=== PATIENT | female | born 1950 | race Caucasian/White ===

== ENCOUNTER 2018-11-01 16:01 | Outpatient (CLI) | payer MEDICARE ==
--- NOTE | 2018-11-09 09:13 | Mammography Report ---
Reason: SCREENING MAMMO Procedure Date: 11/01/2018 Accession Number: [id number] / [id number] Procedure: [facility] - Screening Mammo w/Davis CPT Code: FULL RESULT: EXAM: Screening Mammo w/Davis DATE: 11/01/2018 4:29 PM CLINICAL HISTORY: Screening encounter. TECHNIQUE: (B) - Bilateral CC and MLO views were obtained. COMPARISON: 08/19/2017 through 02/18/2015. PARENCHYMAL PATTERN: (A) - The breast(s) demonstrate(s) scattered fibroglandular densities. FINDINGS: There are coarse typically benign calcifications. There are no suspicious masses, calcifications, or areas of distortion. IMPRESSION: Benign findings. BI-RADS category 2. RECOMMENDATION: (ANNUAL) - Recommend routine annual screening mammography. BI-RADS CATEGORY: (2) - Benign Findings. STANDARD QUALIFYING STATEMENTS: 1. This examination was not reviewed with the aid of Computer-Aided Detection (CAD). 2. A negative or benign imaging report should not preclude biopsy if clinically suspicious findings are present. 3. Dense breasts may obscure an underlying neoplasm. 4. This examination was reviewed with the aid of 3D breast imaging (tomosynthesis).
== END 2018-11-01 16:02 | disposition home or self-care (01) ==
LOC: DI 16:01
PROVIDERS: ATTEND Internal Medicine
DX: Z12.31 Encounter for screening mammogram for malignant neoplasm of breast (principal)
CPT/HCPCS: 77063; 77067

== ENCOUNTER 2020-02-27 14:57 | Outpatient (CLI) | payer MEDICARE ==
--- NOTE | 2020-02-28 12:38 | Mammography Report ---
BILATERAL DIGITAL SCREENING MAMMOGRAM 3D/2D: 02/27/2020 CLINICAL: Routine screening. Comparison is made to exam dated: 11/01/2018 mammogram - [facility]. There are sca ttered fibroglandular elements in both breasts. No significant masses, calcifications, or other findings are seen in either breast. There has been no significant interval change. IMPRESSION: NEGATIVE There is no mammographic evidence of malignancy. A 1 year screening mammogram is recommended. This exam was interpreted at Station ID: [id number]. NOTE: For mammograms, a report in lay terms will be sent to the patient. Approximately 15% of breast malignancies will not be visualized mammographically. In the management of a palpable breast mass, a negative mammogram must not discourage biopsy of a clinically suspicious lesion. Electronically Signed By: Abdon patel/[email or web address]:02/27/2020 15:44:38 ACR BI-RADS Category 1: Negative 3341F PARENCHYMAL PATTERN: (A) - The breast(s) demonstrate(s) scattered fibroglandular densities. BI-RADS CATEGORY: (1) - 1 RECOMMENDATION: (ANNUAL) - Recommend routine annual screening mammography. [id number] 1 year screening LATERALITY: (B)
== END 2020-02-27 14:58 | disposition home or self-care (01) ==
LOC: DI 14:57
DX: Z12.31 Encounter for screening mammogram for malignant neoplasm of breast (principal)
CPT/HCPCS: 77063; 77067

== ENCOUNTER 2021-12-18 08:36 | Outpatient (CLI) | payer MEDICARE ==
--- NOTE | 2021-12-19 08:51 | Mammography Report ---
BILATERAL DIGITAL SCREENING MAMMOGRAM 3D/2D: 12/18/2021 CLINICAL: Routine screening. Comparison is made to exams dated: 02/27/2020 mammogram and 11/01/2018 mammogram - [facility]. There are scattered fibroglandular elements in both breasts. No significant masses, calcifications, or other findings are seen in either breast. There has been no significant interval change. IMPRESSION: NEGATIVE There is no mammographic evidence of malignancy. A 1 year screening mammogram is recommended. This exam was interpreted at Station ID: [id number]. NOTE: For mammograms, a report in lay terms will be sent to the patient. Approximately 15% of breast malignancies will not be visualized mammographically. In the management of a palpable breast mass, a negative mammogram must not discourage biopsy of a clinically suspicious lesion. Electronically Signed By: Abdon Sim M.D. ar/penrad:12/18/2021 11:54:01 ACR BI-RADS Category 1: Negative 3341F PARENCHYMAL PATTERN: (A) - The breast(s) demonstrate(s) scattered fibroglandular densities. BI-RADS CATEGORY: (1) - 1 RECOMMENDATION: (ANNUAL) - Recommend routine annual screening mammography. [id number] 1 year screening LATERALITY: (B)
== END 2021-12-18 08:37 | disposition home or self-care (01) ==
LOC: DI 08:36
DX: Z12.31 Encounter for screening mammogram for malignant neoplasm of breast (principal)

== ENCOUNTER 2021-12-18 09:20 | Outpatient (CLI) | payer MEDICARE ==
[2021-12-18 09:50] LABS: ALBUMIN 4.4 g/dL (3.2-5.5); ALBUMIN/GLOBULIN RATIO 1.3 (1.0-2.2); ALKALINE PHOSPHATASE 54 IU/L (42-121); ALT ALANINE AMINOTRANSFERASE 13 IU/L (10-60); AST ASPARTATE AMINOTRANSFERASE 15 IU/L (10-42); BILIRUBIN,TOTAL 0.6 mg/dL (0.2-1.0); BUN - BLOOD UREA NITROGEN 20 mg/dL (6-20); CALCIUM 9.3 mg/dL (8.5-10.3); CARBON DIOXIDE - CO2 27 mmol/L (21-32); CHLORIDE 104 mmol/L (101-111); CHOL/HDL RATIO 3.5 (<4.4); CHOLESTEROL 252 mg/dL; CREATININE 0.8 mg/dL (0.4-1.0); GFR - MDRD 71 (>89); GLUCOSE 107 mg/dL (70-100); HDL CHOLESTEROL 71 mg/dL; LDL CHOLESTEROL,CALCULATED 163 mg/dL; LDL/HDL RATIO 2.3 (<4.4); POTASSIUM 4.1 mmol/L (3.5-5.0); SODIUM 139 mmol/L (135-145); TOTAL PROTEIN 7.7 g/dL (6.7-8.2); TRIGLYCERIDES 92 mg/dL; VLDL CHOLESTEROL 18 mg/dL
[2021-12-19 06:09] LABS: HCV AB 0.1 s/co ratio (0.0-0.9)
== END 2021-12-18 09:21 | disposition home or self-care (01) ==
LOC: LAB 09:20
PROVIDERS: ATTEND Internal Medicine
DX: E78.5 Hyperlipidemia, unspecified (principal); Z11.59 Encounter for screening for other viral diseases
CPT/HCPCS: 36415; 80053; 80061; 83721; 86803

== ENCOUNTER 2021-12-30 07:45 | Outpatient (CLI) | payer MEDICARE ==
--- NOTE | 2021-12-30 08:53 | Ultrasound Report ---
PROCEDURE: Abdomen Complete INDICATIONS: HARD MASS OF ABDOMEN TECHNIQUE: Real-time scanning was performed of the abdominal and retroperitoneal organs, with image documentatio n. COMPARISON: None. FINDINGS: Liver: The liver measures 14.8 cm in size and demonstrates increased echogenicity throughout. The hy perechoic mass is present within the superior right lobe which measures 2.7 x 2.5 x 2.2 cm and has th e sonographic appearance of a hepatic hemangioma. Gallbladder: The gallbladder wall measures 1.1 mm in diameter. No stones, sludge, pericholecystic flu id, or sonographic Fontana's sign. Biliary ducts: Intrahepatic bile ducts are non-dilated. Extrahepatic bile duct caliber measures 5.1 mm. Normal is 6-7 mm or less in diameter, or 10 mm or less post-cholecystectomy. Pancreas: Normal size. There is a 1.4 x 1.3 x 1.6 cm cystic lesion at the head of the pancreas. No in ternal vascularity detected; however a small mural nodule is noted. Spleen: Spleen is normal in size and homogeneous in echotexture. Kidneys: Kidneys are normal in size and echotexture. Right kidney measures 10.8 cm long; left kidne y measures 11.0 cm long. No hydronephrosis or nephrolithiasis. No solid masses. Aorta: Visualized aorta is normal in caliber at less than 3 cm. Iliacs: Proximal common iliac arteries are normal in caliber at less than 2.5 cm. IVC: Intrahepatic inferior vena cava is patent. Miscellaneous: No free abdominal fluid. A 4 cm fat-containing umbilical hernia is present in the are a palpated by the patient. It is unclear whether this is reducible. IMPRESSION: 1. Fat-containing umbilical hernia which corresponds with the region palpable by the patient. It is u nclear from this study whether this is reducible or nonreducible. 2. Incidentally noted hepatic hemangioma. 3. Increased echogenicity of the hepatic parenchyma suggesting fatty infiltration although other sour brisa of hepatocellular dysfunction cannot be excluded. 4. Cyst within the pancreatic head with questionable mural nodule. No definite vascularity; however p ancreatic mass protocol CT recommended to further characterize this finding and establish baseline st udy for further follow-up. Differential considerations include a cystic pancreatic neoplasm. Reviewed by: Vero Rogers MD on 12/30/2021 8:51 AM PDT Approved by: Vero Rogers MD on 12/30/2021 8:51 AM PDT Station ID: [id number]
== END 2021-12-30 07:46 | disposition home or self-care (01) ==
LOC: DI 07:45
PROVIDERS: ATTEND Internal Medicine
DX: K42.9 Umbilical hernia without obstruction or gangrene (principal); K86.2 Cyst of pancreas

== ENCOUNTER 2022-03-13 06:25 | Day surgery (SDC) | payer MEDICARE ==
[2022-03-13] MEDS ORDERED: CEFAZOLIN 2G/50ML 0.9% NS 2 GM/50 ML BAG IV ONE (06:42)
[2022-03-13] MEDS ORDERED: LACTATED RINGERS 1,000 ML IV ONE (06:45)
--- NOTE | 2022-03-13 07:20 | ANESTHESIA ---
Pre-Anesthesia VS, & Labs - Diagnosis UMBILICAL HERNIA - Procedure UMBILICAL HERNIA REPAIR Vital Signs: Temp Pulse Resp BP Pulse Ox 36.7 C 70 20 206/106 H 94 03/13/22 06:46 03/13/22 06:46 03/13/22 06:46 03/13/22 06:46 03/13/22 06:46 Height: 5 ft 10 in Weight (kg): 99.5 kg Body Mass Index: 31.4 BMI Classification: Obese - NPO >8 hours - Is Patient ?: No Home Medications and Allergies Home Medications: Ambulatory Orders FLUoxetine [PROzac] 10 mg PO DAILY 03/06/22 Gabapentin [Neurontin] 100 mg PO QPM 03/06/22 FLUoxetine [PROzac] 10 mg PO DAILY 03/06/22 Gabapentin [Neurontin] 100 mg PO QPM 03/06/22 Allergies/Adverse Reactions: Allergies Allergy/AdvReac Type Severity Reaction Status Date / Time codeine AdvReac Rash Verified 03/13/22 06:09 Anes History & Medical History - Anesthetic History Anesthesia Complications: reports: No previous complications Family history of Anesthesia Complications: Denies Family history of Malignant Hyperthermia: Denies - Medical History Cardiovascular: reports: None Pulmonary: reports: None Gastrointestinal: reports: Colon polyps Urinary: reports: None Musculoskeletal: reports: None Endocrine/Autoimmune: reports: None Skin: reports: None Smoking Status: Never smoker Psychosocial: reports: No issues indicated History of Cancer?: No - Surgical History General: reports: Colonoscopy, Other Orthopedic: reports: Spine surgery (CERVICAL FUSION; FULL NECK ROM) Exam General: Alert, Oriented x3, Cooperative, No acute distress Dental: WNL Mouth Openin Fingerbreadth Neck Mobility: Normal Mallampati classification: II Thyromental Distance: 4-6 cm Respiratory: Lungs clear Cardiovascular: Regular rate Mental/Cognitive Status: Alert/Oriented X3 Cognitive Status: Within normal limits Plan Anesthesia Type: General Consent for Procedure(s) Verified and Reviewed: Yes Code Status: Attempt Resuscitation ASA classification: 2-Mild systemic disease Is this case an emergency?: No
[2022-03-13] MEDS ORDERED: BUPIVACAINE 0.5% PF 30 ML VIAL ONE (07:22)
[2022-03-13] MEDS ORDERED: DEXAMETHASONE 4 MG/ML VIAL ONE (07:49)
[2022-03-13] MEDS ORDERED: LIDOCAINE-MPF 2% 5 ML VIAL ONE ×2 (07:49→07:50)
[2022-03-13] MEDS ORDERED: PROPOFOL 200 MG/20 ML VIAL IVP ONE ×2 (07:49→08:15)
[2022-03-13] MEDS ORDERED: ONDANSETRON 4 MG/2 ML VIAL ONE (07:49)
[2022-03-13] MEDS ORDERED: fentaNYL 100 MCG/2 ML VIAL ONE (07:56)
[2022-03-13] MEDS ORDERED: BUPIVACAINE 0.5% PF 30 ML VIAL SUBQ ONE (08:03)
[2022-03-13] MEDS ORDERED: GLYCOPYRROLATE 1 MG/5 ML VIAL ONE (08:21)
[2022-03-13] MEDS ORDERED: KETOROLAC 30 MG/ML VIAL ONE (08:53)
[2022-03-13] MEDS ORDERED: LACTATED RINGERS 350 ML IV ONE (08:54)
[2022-03-13] MEDS ORDERED: ONDANSETRON 4 MG/2 ML VIAL IVP PRN ×2 (08:54→09:01)
[2022-03-13] MEDS ORDERED: HYDROmorphone 0.5 MG/0.5 ML SYRINGE IVP PRN ×2 (08:54→09:01)
[2022-03-13] MEDS ORDERED: HYDROcod/ACETAM 5/325 MG TABLET PO PRN (08:54)
--- NOTE | 2022-03-13 09:00 | OPERATIVE REPORT ---
Operative Report - General Procedure Date: 03/13/22 Planned Procedure: Umbilical herniorrhaphy Pre-Op Diagnosis: Umbilical hernia Procedure Performed: Supraumbilical ventral herniorrhaphy with mesh Post Op Diagnosis: Supraumbilical ventral hernia - Procedure Note Primary Surgeon: Sly Valadez MD Anesthesia Provider: RISHI Rivera supervised by Karlee Abdul CRNA Anesthesia Technique: General mask, Local (30 mL of half percent Marcaine) IV Fluids (mL): 700 Estimated Blood Loss (mL): 5 Drain/Tube Type: Other (None.) Indications: Symptomatic umbilical hernia Findings: The hernia was not umbilical but rather a supraumbilical ventral hernia with incarcerated preperitoneal fat Complications: None. - Other Other Information/Narrative: After verbal and written informed consent was obtained detailing the operation, the alternatives the operation including no operation, risks of infection, bleeding requiring transfusion with its risks, nerve injury, and and after I met with the patient confirming the surgery and the site of surgery, the patient was brought to the operative suite and placed supine on the operating table. Great care was taken to avoid pressure points to prevent pressure necrosis or nerve injury. Monitoring devices were applied along with TEDs and pneumatic compression stockings (to prevent DVT). The patient received preoperative antibiotics for surgical prophylaxis. RISHI Rivera actively proctored by Karlee Abdul CRNA sedated and anesthetized the patient for the entire procedure. The patient was prepped and draped in the usual sterile manner. A "time in" then confirmed that the patient was identified with 3 identifiers (name, date, and medical record number), the history and physical was updated and in the chart, the signed consent confirming the procedure was in the chart, the patient was in the correct position, the aforementioned prophylactic measures were in place or given, we had the correct personnel and equipment to complete the procedure and that anesthesia and the surgical team were given an opportunity to express any concerns. With the agreement of everyone in the room we proceeded with the operation. A transverse incision was made over the hernia and dissection was carried out down to the hernia sac using a combination of blunt dissection as well as Bovie electrocautery. Hemostasis was obtained using Bovie electrocautery. The sac was dissected back to the fascial defect. Upon dissection down to the fascial defect it was clear that this hernia was not an umbilical hernia but rather a ventral hernia some 3 cm above the location of the umbilicus. A Ventralex ST Hernia Patch (reference #[id number], lot# [id number], use by 2023-08-01) was obtained and deployed into the hernia defect. The mesh was secured to the fascia using 2-0 PDS and the straps superiorly and inferiorly. Laterally a 0 PDS U stitch was placed to further secure the mesh to the fascia. The fascia was secured over the mesh with an additional [id number] 2-0 PDS.. The local was injected at the fascial and skin level. The subcutaneous tissues were approximated using a simple 3-0 Vicryl suture. The skin incision was approximated with 4-0 Monocryl in a subcuticular fashion. The skin was cleaned of its prep and Dermabond was applied. At this point a t imeout was performed that confirmed that all counts were correct x2, the procedure that was performed, the blood loss, the IV fluids administered, the patient's condition, and any concerns of the operating team had. Having tolerated the procedure well, the patient was taken recovery room in good and stable condition. The plan is for outpatient discharge when the patient is adequately recovered. This document was created in part using voice recognition technology. Because of the inherent limitations of the system, occasional same sounding word substitutions and grammatical errors do occur and persist despite proofreading. Please read this document for content.
[2022-03-13] MEDS ORDERED: ATROPINE ABBOJECT 1 MG/10 ML SYRINGE IVP PRN (09:01)
[2022-03-13] MEDS ORDERED: NALOXONE 0.4 MG/ML VIAL IVP PRN (09:01)
[2022-03-13] MEDS ORDERED: fentaNYL 100 MCG/2 ML VIAL IVP PRN (09:01)
[2022-03-13] MEDS ORDERED: MORPHINE 2 MG/ML CARPUJECT IVP PRN (09:01)
[2022-03-13] MEDS ORDERED: ePHEDrine 50 MG/ML VIAL IVP PRN (09:01)
[2022-03-13] MEDS ORDERED: LACTATED RINGERS 1,000 ML IV SCH (10:00)
--- NOTE | 2022-03-13 10:36 | ANESTHESIA POST OP EVALUATION ---
Anesthesia Post Eval - Post Anesthesia Eval Vitals: Last Vital Signs Temp 36.6 C 03/13/22 10:10 Pulse 62 03/13/22 10:10 Resp 14 03/13/22 10:10 BP 179/93 H 03/13/22 10:10 Pulse Ox 94 03/13/22 10:10 CV Function Including HR & BP: Stable Pain Control: Satisfactory Nausea & Vomiting: Negative Mental Status: Baseline Respiratory Status: Airway Patent Hydration Status: Satisfactory Anesthesia Complications: None
[2022-03-13 11:09] VITALS: BP 175/94
== END 2022-03-13 06:26 | disposition home or self-care (01) ==
LOC: SDS 06:25
PROVIDERS: ATTEND Surgery
DX: K43.6 Other and unspecified ventral hernia with obstruction, without gangrene (principal); H91.90 Unspecified hearing loss, unspecified ear; E66.9 Obesity, unspecified; Z68.31 Body mass index [BMI] 31.0-31.9, adult
CPT/HCPCS: 49561; 49568; A9270; C1781; J0690; J7120

== ENCOUNTER 2023-03-04 11:15 | Outpatient (CLI) | payer MEDICARE ==
--- NOTE | 2023-03-05 16:29 | Mammography Report ---
BILATERAL DIGITAL SCREENING MAMMOGRAM 3D/2D: 03/04/2023 CLINICAL: Routine screening. Comparison is made to exams dated: 12/18/2021 mammogram, 02/27/2020 mammogram, and 11/01/2018 mammogram - [facility]. There are scattered areas of fibroglandular density in both breasts (category b / 25%-50% glandular t issue). No significant masses, calcifications, or other findings are seen in either breast. There has been no significant interval change. IMPRESSION: NEGATIVE There is no mammographic evidence of malignancy. A 1 year screening mammogram is recommended. Based on the Tyrer Cuzick model (a risk assessment model) the patients lifetime risk is 5.3% and her 10 year risk is 3.4%. According to the ACR, ACS, and NCCN guidelines, an annual breast MRI exam denise g with mammogram is recommended if the patients lifetime risk is 20% or greater. This exam was interpreted at Station ID: [id number]. NOTE: For mammograms, a report in lay terms will be sent to the patient. Approximately 15% of breast malignancies will not be visualized mammographically. In the management of a palpable breast mass, a negative mammogram must not discourage biopsy of a clinically suspicious lesion. Electronically Signed By: Vero van/anirudh:03/04/2023 17:42:03 letter sent: No_Letter ACR BI-RADS Category 1: Negative 3341F PARENCHYMAL PATTERN: (A) - The breast(s) demonstrate(s) scattered fibroglandular densities. BI-RADS CATEGORY: (1) - 1 Mammogram [id number] 1 year screening LATERALITY: (B)
== END 2023-03-04 11:16 | disposition home or self-care (01) ==
LOC: DI 11:15
DX: Z12.31 Encounter for screening mammogram for malignant neoplasm of breast (principal)

== ENCOUNTER 2023-06-02 07:52 | Day surgery (SDC) | payer MEDICARE ==
[2023-06-02] MEDS ORDERED: LACTATED RINGERS 1,000 ML IV ONE (08:14)
--- NOTE | 2023-06-02 08:50 | ANESTHESIA ---
Pre-Anesthesia VS, & Labs - Diagnosis screening exam - Procedure colonoscopy Vital Signs: Temp Pulse Resp BP Pulse Ox O2 Flow Rate 36.8 C 63 21 167/104 H 96 06/02/23 08:07 06/02/23 08:07 06/02/23 08:07 06/02/23 08:07 06/02/23 08:07 Height: 5 ft 10 in Weight (kg): 99 kg Body Mass Index: 31.3 BMI Classification: Obese - NPO >8 hours - Is Patient ?: No Home Medications and Allergies FLUoxetine [PROzac] 10 mg PO DAILY 03/06/22 Gabapentin [Neurontin] 100 mg PO QPM 03/06/22 Allergies/Adverse Reactions: Allergies Allergy/AdvReac Type Severity Reaction Status Date / Time codeine AdvReac Rash Verified 06/01/23 13:31 Anes History & Medical History - Anesthetic History Anesthesia Complications: reports: No previous complications - Medical History Cardiovascular: reports: None Pulmonary: reports: None Gastrointestinal: reports: Colon polyps Urinary: reports: None Neuro: reports: None Musculoskeletal: reports: None Endocrine/Autoimmune: reports: None Skin: reports: None Smoking Status: Never smoker Psychosocial: reports: Alcohol History of Cancer?: No Other Past Medical History: Hard of hearing - Surgical History General: reports: Other Orthopedic: reports: Spine surgery Exam General: Alert, Oriented x3, Cooperative, No acute distress Dental: WNL Mouth Openin Fingerbreadth Neck Mobility: Normal Mallampati classification: II Thyromental Distance: 4-6 cm Mental/Cognitive Status: Alert/Oriented X3, Normal for patient Plan Anesthesia Type: General, Total IV Consent for Procedure(s) Verified and Reviewed: Yes Code Status: Attempt Resuscitation ASA classification: 2-Mild systemic disease Is this case an emergency?: No
[2023-06-02] MEDS ORDERED: LACTATED RINGERS 400 ML IV ONE ×2 (09:28)
[2023-06-02 09:45] VITALS: BP 138/79; O2SAT 100
--- NOTE | 2023-06-02 10:29 | ANESTHESIA POST OP EVALUATION ---
Anesthesia Post Eval - Post Anesthesia Eval Vitals: Last Vital Signs Temp 36.1 C L 06/02/23 09:40 Pulse 52 L 06/02/23 09:40 Resp 14 06/02/23 09:40 BP 138/79 H 06/02/23 09:40 Pulse Ox 100 06/02/23 09:40 O2 Flow Rate CV Function Including HR & BP: Stable Pain Control: Satisfactory Nausea & Vomiting: Negative Mental Status: Baseline Respiratory Status: Airway Patent Hydration Status: Satisfactory Anesthesia Complications: None
== END 2023-06-02 07:53 | disposition home or self-care (01) ==
LOC: SDS 07:52
PROVIDERS: ATTEND Surgery
PROC: 0DBN8ZZ Excision of Sigmoid Colon, Via Natural or Artificial Opening Endoscopic (ICD-10-PCS; principal; 2023-06-02 09:00)
DX: Z12.11 Encounter for screening for malignant neoplasm of colon (principal); K63.5 Polyp of colon; K57.30 Diverticulosis of large intestine without perforation or abscess without bleeding; K64.1 Second degree hemorrhoids; Z87.891 Personal history of nicotine dependence; E66.9 Obesity, unspecified; Z68.31 Body mass index [BMI] 31.0-31.9, adult
CPT/HCPCS: 45380; J7120

== ENCOUNTER 2024-01-31 08:00 | Outpatient (CLI) | payer MEDICARE ==
--- NOTE | 2024-01-31 19:30 | XRAY Report ---
PROCEDURE: Chest 2V INDICATIONS: HYPOXIA TECHNIQUE: 2 views of the chest were acquired. COMPARISON: 07/25/2015 FINDINGS: Surgical changes and devices: None. Lungs and pleura: Increased infrahilar interstitial markings bilaterally and minimal airspace diseas e at the left lung base. Mediastinum: Mediastinal contours appear normal. Heart size is normal. Bones and chest wall: No suspicious bony lesions. Overlying soft tissues appear unremarkable. IMPRESSION: Minor left basilar airspace disease, pneumonia versus bronchitis. Findings superimposed on mild interstitial prominence of uncertain chronicity. Reviewed by: Phyllis De La O MD on 01/31/2024 7:29 PM PDT Approved by: Phyllis De La O MD on 01/31/2024 7:29 PM PDT Station ID: [id number]
== END 2024-01-31 23:59 | disposition home or self-care (01) ==
LOC: DI.S 08:00
PROVIDERS: ATTEND Registered Nurse
DX: R91.8 Other nonspecific abnormal finding of lung field (principal)

== ENCOUNTER 2024-02-07 08:00 | Outpatient (CLI) | payer MEDICARE ==
--- NOTE | 2024-02-07 17:37 | XRAY Report ---
PROCEDURE: Chest 2V INDICATIONS: COUGH TECHNIQUE: 2 views of the chest were acquired. COMPARISON: 01/31/2024 FINDINGS: Surgical changes and devices: None. Lungs and pleura: Decreasing left lung base opacity. Chronic slight prominence of the perihilar bron chial hook suggesting potentially chronic bronchitis. No pleural effusion or pneumothorax. Mediastinum: Mediastinal contours appear normal. Heart size is normal. Bones and chest wall: No suspicious bony lesions. Overlying soft tissues appear unremarkable. IMPRESSION: Improvement in small left lung base airspace opacity. Probably chronic bronchitis, less likely interstitial lung disease. Reviewed by: Phyllis De La O MD on 02/07/2024 5:36 PM PDT Approved by: Phyllis De La O MD on 02/07/2024 5:36 PM PDT Station ID: [id number]
== END 2024-02-07 23:59 | disposition home or self-care (01) ==
LOC: DI.S 08:00
PROVIDERS: ATTEND Nurse Practitioner
DX: R91.8 Other nonspecific abnormal finding of lung field (principal)